=== PATIENT | male | born 1985 | race Caucasian/White ===

== ENCOUNTER 2016-07-24 12:25 | Emergency (ER) | payer OTHER ==
[2016-07-24 13:09] VITALS: BP 143/85
[2016-07-24] MEDS ORDERED: cefTRIAXone VIAL(*) 1,000 MG VIAL IM ONE (13:48)
[2016-07-24] MEDS ORDERED: Tetan/Diph/Pertus SYR(Tdap)* 0.5 ML SYR(BOOSTRIX) use SYR IM ONE (13:48)
[2016-07-24] MEDS ORDERED: Lidocaine 1% MPF* 2 ML VIAL ONE (13:54)
--- NOTE | 2016-07-24 14:02 | UC ---
Joshua Inman Matthew, scribed for EricGene lawton MD on 07/24/16 at 1352 . Bite Injury/Animal HPI - HPI Summary HPI Summary: Nurse's Note: Patient was bitten by a cat on his left second finger, around the MCP joint around 0300 hours. Cat is up to date to all vaccinations, last tetanus 2010 Note: Vital Sign stable, Pulse oxygen 100%, 3/10 pain In Room Note: A 31 y/o male presents to [facility] with a cit bite at 03:00 this morning. The pain is rated 3/10 in severity, described as sharp and intermittent. The patient was bitten by his cat on his second finger of the left hand. The cat is UTD on its vaccinations. No hospitalizations. Not UTD on tetanus. No FHx. The patient is right hand dominate. - History of Current Complaint Chief Complaint: UCBiteInjury Stated Complaint: CAT BITE Time Seen by Provider: 07/24/16 13:21 Hx Obtained From: Patient Severity Currently: Mild Severity Initially: Mild Pain Intensity: 3 Pain Scale Used: 0-10 Numeric Onset/Duration: Sudden Onset, Lasting Hours, Still Present Type of Bite: Pet - Cat Has Animal Been Immunized?: Yes Character: Puncture Aggravating Factor(s): Nothing Alleviating Factor(s): Nothing Associated Signs And Symptoms: Negative: Fever, Erythema, Swelling, Numbness/ Tingling Animal Available for Observation: Yes Animal Control Notified: No - Allergies/Home Medications Allergies/Adverse Reactions: Allergies Allergy/AdvReac Type Severity Reaction Status Date / Time No Known Allergies Allergy Verified 07/24/16 13:04 PMH/Surg Hx/FS Hx/Imm Hx Previously Healthy: Yes Endocrine History Of: Denies: Diabetes - Surgical History Surgical History: None - Family History Known Family History: Negative: Cardiac Disease, Hypertension - Social History Alcohol Use: Weekly Alcohol Amount: a couple drinks per week Substance Use Type: None Smoking Status (MU): Never Smoked Tobacco Have You Smoked in the Last Year: No - Immunization History Most Recent Tetanus Shot: 2010 Review of Systems Constitutional: Negative Skin: Other - Cit bite and scratches to the left hand Eyes: Negative ENT: Negative Respiratory: Negative Cardiovascular: Negative Gastrointestinal: Negative Genitourinary: Negative Motor: Negative Neurovascular: Negative Musculoskeletal: Negative Neurological: Negative Psychological: Negative All Other Systems Reviewed And Are Negative: Yes Physical Exam Triage Information Reviewed: Yes Appearance: Well-Appearing, No Pain Distress, Well-Nourished Vital Signs: Initial Vital Signs Temp 98.4 F 07/24/16 13:04 Pulse 67 07/24/16 13:04 Resp 16 07/24/16 13:04 BP 143/85 07/24/16 13:04 Pulse Ox 100 07/24/16 13:04 Vital Signs Reviewed: Yes Eyes: Positive: Conjunctiva Clear ENT: Positive: Hearing grossly normal, Pharynx normal, TMs normal. Negative: Muffled/hoarse voice Neck: Positive: Supple, Nontender Respiratory: Positive: Chest non-tender, Lungs clear, Normal breath sounds, No respiratory distress Cardiovascular: Positive: RRR, No Murmur Abdomen Description: Positive: Nontender, No Organomegaly, Soft Musculoskeletal Exam: Normal Musculoskeletal: Positive: Strength Intact Neurological: Positive: Alert Psychological: Positive: Age Appropriate Behavior Skin: Positive: Other - LEFT HAND ON THE DORSAL ASPECT 4 SCRATCHES LOCATED OVER THE PROXIMAL DORSAL ASPECT OF THE 5TH FINGER, 4TH FINGER, DORSAL OF THE SECOND FINGER, AND IN THE WEB SPACE ON THE DORSAL. CAT BITE WITH THREE INCISION SITE OVER THE RADIAL ASPECT OF THE PROXIMAL INTERPHALANGEAL JOINT OF THE LEFT INDEX FINGER. MILD SWELLING; RESISTANCE TO FULL FLEXION OF THE INDEX FINGER. Full extension without limitation. There is no evidence of cellulitis or lymphangitis.. Negative: rashes Bite Injury Course/Dx - Differential Dx/Diagnosis Differential Diagnosis/HQI/PQRI: Other - Cat scratch vs bite Provider Diagnoses: Cat Bite to the left index finger over PIP Discharge - Discharge Plan Condition: Stable Disposition: HOME Prescriptions: Amoxicillin/Clavulanate TAB* [Augmentin TAB 875*] 875 mg PO BID #20 tab Patient Education Materials: Animal Bite (ED) Referrals: Mojgan Dawson MD [Medical Doctor] - Additional Instructions: WE DISCUSSED: Cat bites can cause infections especially on the hand. I have given you an injection of ceftriaxone and augmentin by mouth. Elevate, warm moist heat for 10 minutes 8 times a day for the next 2 days. Augmentin may cause diarrhea. Go to ED for increasing swelling, pain, temperature, redness. The documentation as recorded by the Joshua valle Matthew accurately reflects the service I personally performed and the decisions made by , Gene Vilchis MD.
== END 2016-07-24 14:11 | disposition home or self-care (01) ==
LOC: UCEAST 12:25
DX: S61.251A Open bite of left index finger without damage to nail, initial encounter (principal); W55.01XA Bitten by cat, initial encounter; R03.0 Elevated blood-pressure reading, without diagnosis of hypertension
CPT/HCPCS: 90471; 90715; 96372; 99202; G0463; J0696

== ENCOUNTER 2019-02-06 19:00 | Emergency (ER) | payer OTHER ==
[2019-02-06 19:32] VITALS: BP 179/105
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
== END 2019-02-06 20:44 | disposition home or self-care (01) ==
LOC: UCEAST 19:00
DX: T23.202A Burn of second degree of left hand, unspecified site, initial encounter (principal); X18.XXXA Contact with other hot metals, initial encounter; Y92.9 Unspecified place or not applicable
CPT/HCPCS: 99212; G0463